=== PATIENT | female | born 1995 | race Caucasian/White ===

== ENCOUNTER → 2017-10-31 | Outpatient (CLI) | payer OTHER ==
[2017-10-31 13:14] LABS: BASO % 0.7 %; BASO ABS # 0.03 K/uL (0-0.2); EOS ABS # 0.18 K/uL (0-0.5); HEMATOCRIT 43.6 % (37-47); HEMOGLOBIN 15.2 g/dL (12.0-16.0); IG# 0.01 K/uL (0.00-0.02); LYMPH % 45.5 %; LYMPH ABS # 2.03 K/uL (1.2-3.4); MEAN CELL VOLUME 90.3 fL (80-100); MEAN CORPUSCULAR HEMOGLOBIN 31.5 pg (25-34); MEAN CORPUSCULAR HGB CONC 34.9 g/dl (32-36); MEAN PLATELET VOLUME 10.3 fL (7.4-10.4); MONO % 9.9 %; MONO ABS # 0.44 K/uL (0.11-0.59); NEUT % 39.7 %; NEUT ABS # 1.77 K/uL (1.4-6.5); PLATELET COUNT 193 K/uL (130-400); RED CELL DISTRIBUTION WIDTH CV 12.3 % (11.5-14.5); RED CELL DISTRIBUTION WIDTH SD 40.4 fL (36.4-46.3); WHITE BLOOD COUNT 4.46 K/uL (4.8-10.8)
[2017-10-31 14:00] LABS: ALBUMIN 4.2 gm/dl (3.4-5.0); ALT/SGPT 27 U/L (12-78); AST/SGOT 12 U/L (15-37); BLOOD UREA NITROGEN 6 mg/dl (7-18); CARBON DIOXIDE 28 mmol/L (21-32); CHOLESTEROL 165 mg/dl (0-200); CREATININE 0.82 mg/dl (0.60-1.20); GLUCOSE 83 mg/dl (70-99); POTASSIUM 3.7 mmol/L (3.5-5.1); SODIUM 135 mmol/L (136-145)
[2017-10-31 14:09] LABS: ALKALINE PHOSPHATASE 64 U/L (45-117); LDL CHOLESTEROL CALCULATED 99 mg/dl; TOTAL PROTEIN 8.2 gm/dl (6.4-8.2)
== END | disposition home or self-care (01) ==
LOC: C.LAB1850 11:45
PROVIDERS: ATTEND Nurse Practitioner Family
DX: Z13.1 Encounter for screening for diabetes mellitus (principal); Z13.220 Encounter for screening for lipoid disorders; R53.83 Other fatigue; E28.2 Polycystic ovarian syndrome

== ENCOUNTER 2018-03-06 16:28 | Emergency (ER) | payer OTHER ==
[~2018-03-06] VITALS: Ht 157.5 cm; Wt 76.4 kg
[2018-03-06 16:45] VITALS: TEMP 37; Ht 157.5 cm; Wt 76.4 kg
--- NOTE | 2018-03-06 18:14 | DIAGNOSTIC IMAGING REPORT ---
PELVIS/BILATERAL HIP 2 VIEWS CLINICAL HISTORY: 22 years-old Female presenting with bilateral hip pain "dislocated". TECHNIQUE: Single frontal view the pelvis and frontal and frog-leg lateral views of the bilateral hips were obtained. COMPARISON: None. FINDINGS: Sacroiliac joints, hip joints, pubic symphysis congruent. No acute fracture or malalignment. No advanced degenerative change. No radiographic soft tissue abnormality. IMPRESSION: No acute osseous injury. Electronically signed by: Jose Urrutia M.D. 03/06/2018 6:13 PM Dictated Date/Time: 03/06/2018 6:12 PM
--- NOTE | 2018-03-06 18:19 | EMERGENCY ROOM VISIT NOTE ---
ED Visit Note First contact with patient: 16:54 CHIEF COMPLAINT: Bilateral hip pain, rash HISTORY OF PRESENT ILLNESS: This 22-year-old female patient presents to the emergency department, ambulatory, complaining of bilateral hip dislocations and a rash. The patient states she chronically has bilateral hip pain, and states they often "pop out". She states normally she can "get them back in", but this time they are "staying popped out". The patient describes excruciating pain, which is worsened with ambulation. She states the symptoms become worse when spending a lot of time on her feet. She works at a [employer] restaurant, and states she has been spending a significant amount of time walking and on her feet at the restaurant. 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 When she attempted to stand, she was unable to get up. She states she cannot sit or stand, and the pain radiates up her sides and into her ribs. She does have a history of anxiety, and states some of her pain feels similar to her anxiety attacks. The patient has been taking 800mg ibuprofen every 6 hours without relief of her pain. There is no numbness or tingling. There is no weakness or falls. Patient also complains of a rash which is been present for several weeks. She describes small bite-like red lesions on her arms, buttocks, and the crease where her buttocks meets her legs. She states the lesions are very itchy, but denies any obvious bites or insects. She states the wounds do not drain, except for when she scratches them open they bleed initially then began feeling better. Patient denies any recent fever. She has not traveled recently. She is sexually active, but states she gets STD testing every 3 months. Her most recent test was within 2 months. She denies any exposures or new soaps or detergents. She lives alone, but has recently been staying in a motel room. Prior to that, she states she was staying in a house. REVIEW OF SYSTEMS: A 10 system review of systems was performed with positives and pertinent negatives listed in the history of present illness. All other systems were reviewed and are negative. ALLERGIES: Naloxone, latex MEDICATIONS: Advil PMH: Anemia SOCIAL HISTORY: Patient lives locally alone. She denies drug use. She does report to drinking alcohol socially. She admits to smoking 1 pack of cigarettes every 2 days. PHYSICAL EXAM: VITALS: Vitals are noted on the nurse's note and reviewed by myself. Vital signs stable. GENERAL: This is a 22-year-old white female, in no acute distress, nondiaphoretic, well-developed well-nourished. SKIN: Erythematous papules with excoriations on the bilateral arms, buttocks, and gluteal cleft. There is no drainage. There is no active bleeding. There do appear to be burrows into the skin. The skin was without edema, or bruising. There is no tenting of the skin. Capillary reflex less than 2 seconds. HEAD: Normocephalic atraumatic. EARS: External auditory canals clear, tympanic membranes pearly vann without erythema or effusion bilaterally. EYES: Pupils equal round and reactive to light and accommodation. Conjunctivae without injection, sclerae without icterus. Extraocular movements intact. NOSE: Patent, turbinates without inflammation or discharge. No sinus tenderness. MOUTH: Mucous membranes moist. Tonsils are not enlarged. Pharynx without erythema or exudate. Uvula midline. Airway patent. Tongue does not deviate. NECK: Supple without nuchal rigidity. No lymphadenopathy. No thyromegaly. Cervical spine is nontender. No JVD. HEART: Regular rate and rhythm without murmurs gallops or rubs. LUNGS: Clear to auscultation bilaterally without wheezes, rales or rhonchi. No dullness to percussion. No retractions or accessory muscle use. ABDOMEN: Positive bowel sounds x 4. Normal tympanic percussion. Soft, nontender, without masses or organomegaly. Varma sign negative. No guarding or rebound tenderness. MUSCULOSKELETAL: Tenderness of the pelvis at the bilateral hip joints. There is full range of motion at the hip joints. There is tenderness with flexion and external rotation at both hip joints, however the range of motion is full. There is no radiation of pain into the low back or down the leg. No muscle atrophy, erythema, or edema noted. Full range of motion without joint tenderness in all other extremities. No tenderness to palpation except as noted. Normal gait. Strength 5/5 throughout. NEURO: Patient was alert and oriented to person place and time. Normal sensation to light and sharp touch. Deep tendon reflexes 2+ throughout. No focal neurological deficits. RADIOLOGY: PELVIS/BILATERAL HIP 2 VIEWS CLINICAL HISTORY: 22 years-old Female presenting with bilateral hip pain "dislocated". TECHNIQUE: Single frontal view the pelvis and frontal and frog-leg lateral views of the bilateral hips were obtained. COMPARISON: None. FINDINGS: Sacroiliac joints, hip joints, pubic symphysis congruent. No acute fracture or malalignment. No advanced degenerative change. No radiographic soft tissue abnormality. IMPRESSION: No acute osseous injury. Electronically signed by: Jose Urrutia M.D. 03/06/2018 6:13 PM Dictated Date/Time: 03/06/2018 6:12 PM EMERGENCY DEPARTMENT COURSE: The patient was seen and evaluated as above. X- rays performed and reviewed by myself and radiologist as above. No acute findings noted. I did recommend steroids to help with the itchiness as well as the inflammation that I suspect is causing the patient's hip discomfort. There are no dislocations noted. The patient was encouraged to follow-up outpatient with orthopedics. She will be treated at this time with permethrin cream in case of scabies. I did discuss with her that the steroids should help with the rash as well. The patient verbalized understanding. Discharge instructions reviewed, patient was discharged home in good condition. I attest that I have personally reviewed the patient's current medication list. Patient was found to have normal blood pressure on screening and does not require follow-up. Etiologies such as soft tissue injury, fracture, dislocation, neurovascular compromise, compartment syndrome, as well as others were entertained. DIAGNOSIS: Bilateral hip pain, unspecified rash, suspected scabies The chart was completed utilizing [employer] voice recognition software. Grammatical errors, random word insertions, pronoun errors, and incomplete sentences are an occasional consequence of this system due to software limitations, ambient noise, and hardware issues. Any formal questions or concerns about the content, text, or information contained within the body of this dictation should be directly addressed to the provider for clarification. Current/Historical Medications Scheduled Methylprednisolone (Medrol Dosepak), 0 PO DAILY Permethrin 5% (Elimite 5%), 0 EXT UD Allergies Uncoded Allergies: BEE STINGS (Allergy, Severe, THROAT SWELLS, 03/06/18) WATER CHESTNUTS (Allergy, Intermediate, HIVES,ITCHY, 03/06/18) CHLORINE BLEACH (Adverse Reaction, Severe, FLESH DESTRUCTION, 03/06/18) Vital Signs Date Time Temp Pulse Resp B/P (MAP) Pulse Ox O2 Delivery O2 Flow Rate FiO2 03/06/18 18:49 77 18 132/78 98 03/06/18 16:45 37.0 74 20 113/77 95 Room Air Departure Information Impression Primary Impression: Bilateral hip pain Additional Impression: Rash and nonspecific skin eruption Dispostion Home / Self-Care Condition GOOD Prescriptions Permethrin 5% (Elimite 5%) 180 Appln/60 Gm Cr 0 EXT UD, #1 TUBE APPLY HEAD TO FOOT - LEAVE ON 8-14 HR - WASH OFF Prov: Ronel Sebastian PA-C 03/06/18 Methylprednisolone (MEDROL DOSEPAK) 4 Mg Sanjay 0 PO DAILY, #1 PKT Prov: Ronel Sebastian PA-C 03/06/18 Referrals Matthew Wheeler III, CRNP (PCP) [facility] Patient Instructions ED Joint Pain, ED Scabies, [facility] Additional Instructions You were seen in the ED today for bilateral hip pain and rash. X-ray of the hips was negative for acute injury or fracture. As discussed, I suspect the rash could be scabies. You have been prescribed a Medrol Dosepak. This is a steroid which will help decrease your inflammation, redness, and itch. Take the medicine as prescribed. Take the ENTIRE 6 day course of the steroids. No NSAIDs including ibuprofen, Motrin, Advil, Aleve, naproxen, meloxicam, diclofenac while taking steroids. Use permethrin cream as prescribed for rash. Ibuprofen(Motrin, Advil) may be used for fever or pain. Use 600mg every six hours as needed. Take with food. Avoid using more than 2400mg in a 24 hour period. Do not use 2400mg per day for more than three consecutive days without physician direction. Prolonged inappropriate use can lead to stomach upset or ulcers. No NSAIDs while taking steroids. (AND/OR) Acetaminophen(Tylenol) may be used for fever or pain. Use 1000mg every six hours as needed. Avoid using more than 4000mg in a 24 hour period. Ice compresses for 20 minutes at a time four times daily for 2-3 days. Rest and elevate your injury. Return to the ER immediately for any numbness, tingling, severe pain, extreme swelling in the extremity or as needed. Call [facility], [phone], this week to arrange follow up for your injury. Follow-up with your primary care physician in 2 to 3 days for a recheck of your current condition. Problem Qualifiers
[2018-03-06] MEDS ORDERED: METH4PAK PO (18:30)
[2018-03-06] MEDS ORDERED: ELMCR EXT (18:30)
[2018-03-06 18:49] VITALS: BP 132/78; PULSE 77; O2SAT 98
== END 2018-03-06 18:50 | disposition home or self-care (01) ==
LOC: C.EDB 16:29 → C.EDD 18:50
DX: M25.551 Pain in right hip (principal); M25.552 Pain in left hip; R21 Rash and other nonspecific skin eruption; F17.210 Nicotine dependence, cigarettes, uncomplicated; Z91.030 Bee allergy status; Z91.018 Allergy to other foods; Z91.048 Other nonmedicinal substance allergy status